=== PATIENT | female | born 1990 | race Caucasian/White ===

== ENCOUNTER 2017-02-24 08:17 | Emergency (ER) | payer SELFPAY ==
[~2017-02-24] VITALS: Ht 162.6 cm; Wt 90.7 kg
[~2017-02-24 08:17] MED LIST: DICY20TA30 PO; HYDR-971 PO; NAPR500T PO; ONDA4TAB10 SL
--- NOTE | 2017-02-24 08:39 | PHYS DOC ---
Past Medical History Past Medical History: Other Additional Past Medical Histor: long QT syndrome Past Surgical History: Other Additional Past Surgical Histo: defibrillator, ectopic Alcohol Use: None Drug Use: None Adult General Chief Complaint Chief Complaint: ABDOMINAL PAIN HPI HPI Patient is a 26 year old female presenting to the emergency department for evaluation of right upper quadrant abdominal pain has been an ongoing issue for months but is worsens yesterday. Has been constant sharp pain causes her nausea but no vomiting fevers chills dysuria hematuria vaginal bleeding or vaginal discharge. She was diagnosed with cholelithiasis back in May of last year and was recommended to have surgery given her ongoing pain however patient says that she has been working with her insurance company to try and get improved for the surgery but has been unsuccessful thus far. Patient is nontoxic-appearing and in no obvious distress with normal vital signs. Review of Systems Review of Systems Constitutional: Denies fever or chills [] Eyes: Denies change in visual acuity, redness, or eye pain [] HENT: Denies nasal congestion or sore throat [] Respiratory: Denies cough or shortness of breath [] Cardiovascular: No additional information not addressed in HPI [] GI: + abdominal pain, nausea. No vomiting, bloody stools or diarrhea [] : Denies dysuria or hematuria [] Musculoskeletal: Denies back pain or joint pain [] Integument: Denies rash or skin lesions [] Neurologic: Denies headache, focal weakness or sensory changes [] Current Medications Current Medications Current Medications Medications (Trade) Dose Ordered Sig/Lyle Start Time Stop Time Status Last Admin Dose Admin Hydromorphone HCl (Dilaudid) 1 mg 1X ONCE 02/24/17 09:45 02/24/17 09:46 DC Ketorolac Tromethamine (Toradol) 30 mg 1X ONCE 02/24/17 09:45 02/24/17 09:46 DC 02/24/17 09:44 30 MG Morphine Sulfate 5 mg 1X ONCE 02/24/17 08:45 02/24/17 08:46 DC 02/24/17 08:50 5 MG Ondansetron HCl (Zofran) 8 mg 1X ONCE 02/24/17 08:45 02/24/17 08:46 DC 02/24/17 08:50 8 MG Promethazine HCl 12.5 mg/Sodium Chloride 50.5 ml @ 151.5 mls/ hr PRN Q6HRS PRN 02/24/17 09:45 02/24/17 09:44 151.5 MLS/HR Sodium Chloride 1,000 ml @ 1,000 mls/hr 1X ONCE 02/24/17 08:45 02/24/17 09:44 DC 02/24/17 08:50 1,000 MLS/HR Allergies Allergies Allergies Coded Allergies Type Severity Reaction Last Updated Verified No Known Drug Allergies 01/06/14 No Physical Exam Physical Exam Constitutional: Well developed, well nourished, no acute distress, non-toxic appearance. [] HENT: Normocephalic, atraumatic, bilateral external ears normal, oropharynx moist, no oral exudates, nose normal. [] Eyes: PERRLA, EOMI, conjunctiva normal, no discharge. [] Neck: Normal range of motion, no tenderness, supple, no stridor. [] Cardiovascular:Heart rate regular rhythm, no murmur [] Lungs & Thorax: Bilateral breath sounds clear to auscultation [] Abdomen: Bowel sounds normal, soft, + RUQ tenderness, no rebound or guarding, no masses, no pulsatile masses. [] Skin: Warm, dry, no erythema, no rash. [] Back: No tenderness, no CVA tenderness. [] Extremities: No tenderness, no cyanosis, no clubbing, ROM intact, no edema. [] Neurologic: Alert and oriented X 3, normal motor function, normal sensory function, no focal deficits noted. [] Current Patient Data Vital Signs Vital Signs Date Time Temp Pulse Resp B/P (MAP) Pulse Ox O2 Delivery O2 Flow Rate FiO2 02/24/17 08:50 16 02/24/17 08:20 98.4 91 132/78 (96) 99 Room Air 98.4 Lab Values Laboratory Tests Test 02/24/17 07:50 02/24/17 08:41 POC Urine HCG, Qualitative Hcg negative (Negative) White Blood Count 7.4 x10^3/uL (4.0-11.0) Red Blood Count 4.76 x10^6/uL (3.50-5.40) Hemoglobin 13.6 g/dL (12.0-15.5) Hematocrit 38.7 % (36.0-47.0) Mean Corpuscular Volume 81 fL (79-100) Mean Corpuscular Hemoglobin 29 pg (25-35) Mean Corpuscular Hemoglobin Concent 35 g/dL (31-37) Red Cell Distribution Width 14.5 % (11.5-14.5) Platelet Count 198 x10^3/uL (140-400) Neutrophils (%) (Auto) 62 % (31-73) Lymphocytes (%) (Auto) 30 % (24-48) Monocytes (%) (Auto) 7 % (0-9) Eosinophils (%) (Auto) 1 % (0-3) Basophils (%) (Auto) 0 % (0-3) Neutrophils # (Auto) 4.6 x10^3uL (1.8-7.7) Lymphocytes # (Auto) 2.2 x10^3/uL (1.0-4.8) Monocytes # (Auto) 0.5 x10^3/uL (0.0-1.1) Eosinophils # (Auto) 0.1 x10^3/uL (0.0-0.7) Basophils # (Auto) 0.0 x10^3/uL (0.0-0.2) Sodium Level 139 mmol/L (136-145) Potassium Level 3.5 mmol/L (3.5-5.1) Chloride Level 104 mmol/L (98-107) Carbon Dioxide Level 25 mmol/L (21-32) Anion Gap 10 (6-14) Blood Urea Nitrogen 15 mg/dL (7-20) Creatinine 0.8 mg/dL (0.6-1.0) Estimated GFR (Cockcroft-Gault) 88.1 BUN/Creatinine Ratio 19 (6-20) Glucose Level 97 mg/dL (70-99) Calcium Level 9.0 mg/dL (8.5-10.1) Magnesium Level 1.7 mg/dL (1.8-2.4) L Total Bilirubin 0.4 mg/dL (0.2-1.0) Aspartate Amino Transferase (AST) 24 U/L (15-37) Alanine Aminotransferase (ALT) 53 U/L (14-59) Alkaline Phosphatase 78 U/L (46-116) Total Protein 7.1 g/dL (6.4-8.2) Albumin 3.7 g/dL (3.4-5.0) Albumin/Globulin Ratio 1.1 (1.0-1.7) Lipase 118 U/L (73-393) Laboratory Tests 02/24/17 08:41 Laboratory Tests 02/24/17 08:41 EKG EKG [] Radiology/Procedures Radiology/Procedures Indication right upper quadrant pain. Grayscale imaging was performed and targeted to the right upper quadrant. No similar imaging is available. The visualized head of the pancreas is normal. The body and tail were largely obscured. The visualized inferior vena cava appeared normal. There is some increased attenuation of the ultrasound beam by the liver compatible with fatty infiltration. A focal mass lesion in the visualized liver is not seen. There is cholelithiasis. Several stones are seen in the dependent portion of the gallbladder. The gallbladder wall is minimally thickened. The patient demonstrated tenderness in the right upper quadrant during the period of the examination (positive Buck's sign). The common bile duct is at the upper limits of normal in size 5 to 6 mm. The right kidney appeared normal. IMPRESSION: Cholelithiasis. Several stones are seen in the dependent portion of the gallbladder. The gallbladder wall is at the upper limits of normal in thickness.. The patient exhibited tenderness in the right upper quadrant during the examination. Cholecystitis is not excluded DICTATED and SIGNED BY: KAREN OVALLE MD DATE: 02/24/17912 Course & Med Decision Making Course & Med Decision Making Likely biliary colic will get labs ultrasound and reassess. Patient had some pain after initial treatment however she is feeling better and is now more complaining of burning pain in her epigastrium. Ultrasound did not rule out cholecystitis however there is no gallbladder wall thickening or pericholecystic fluid. Her labs are unremarkable with no leukocytosis or increased liver enzymes. Patient was given additional medications and her pain was resolved and she was drinking water with no difficulty. I do not see any reason for inpatient treatment of her biliary colic and gastritis at this time so I will discharge her with supportive medication until her to follow with surgeon later this week and come back to the ER sooner with any worsening pain fevers vomiting or other general concerns. Dragon Disclaimer Dragon Disclaimer This electronic medical record was generated, in whole or in part, using a voice recognition dictation system. Departure Departure Impression: Primary Impression: Biliary colic Additional Impression: Abdominal pain Disposition: 01 HOME, SELF-CARE Condition: GOOD Referrals: TINY AZEVEDO MD Patient Instructions: Biliary Colic Additional Instructions: Eat soft non-irritating foods if you feel hungry but focused mostly on liquids including water and Gatorade. We'll with the surgeon as soon as possible and come back to the ER sooner with any worsening pain fevers vomiting or other general concerns. Scripts Omeprazole Magnesium (PRILOSEC OTC) 20 Mg Tablet.dr 1 TAB PO DAILY, #30 TAB 2 Refills Prov: TANIKA OLIVARES DO 02/24/17 Ondansetron (ZOFRAN ODT) 4 Mg Tab.rapdis 4 MG PO BID Y for NAUSEA/VOMITING, #14 TAB Prov: TANIKA OLIVARES DO 02/24/17 Hydrocodone/Apap 5-325 (NORCO 5-325 TABLET) 1 Each Tablet 1 TAB PO PRN Q6HRS Y for PAIN, #20 TAB 0 Refills Prov: TANIKA OLIVARES DO 02/24/17 Problem Qualifiers TANIKA OLIVARES DO Feb 24, 2017 08:39
[2017-02-24] MEDS ORDERED: MORPHINE SULFATE 10 MG/ML VIAL. IV ONE (08:45)
[2017-02-24] MEDS ORDERED: ONDANSETRON PF 4 MG/2 ML VIAL. IV ONE (08:45)
[2017-02-24] MEDS ORDERED: IV NORMAL SALINE 1000ML BAG 1,000 ML IV ONE (08:45)
[2017-02-24 08:51] LABS: BASO % 0 % (0-3); EOS % 1 % (0-3); HEMATOCRIT 38.7 % (36.0-47.0); HEMOGLOBIN 13.6 g/dL (12.0-15.5); LYMPH # 2.2 x10^3/uL (1.0-4.8); LYMPH % 30 % (24-48); MEAN CORPUSCULAR HEMOGLOBIN 29 pg (25-35); MEAN CORPUSCULAR HGB CONC 35 g/dL (31-37); MEAN CORPUSCULAR VOLUME 81 fL (79-100); MONO % 7 % (0-9); NEUT % 62 % (31-73); PLATELET COUNT 198 x10^3/uL (140-400); RED BLOOD COUNT 4.76 x10^6/uL (3.50-5.40); RED CELL DISTRIBUTION WIDTH 14.5 % (11.5-14.5); WHITE BLOOD COUNT 7.4 x10^3/uL (4.0-11.0)
[2017-02-24 09:11] LABS: CREATININE 0.8 mg/dL (0.6-1.0); GFR 88.1; POTASSIUM 3.5 mmol/L (3.5-5.1)
[2017-02-24 09:17] LABS: ALBUMIN 3.7 g/dL (3.4-5.0); ALBUMIN/GLOBULIN RATIO 1.1 (1.0-1.7); MAGNESIUM 1.7 mg/dL (1.8-2.4); TOTAL BILIRUBIN 0.4 mg/dL (0.2-1.0); TOTAL PROTEIN 7.1 g/dL (6.4-8.2)
--- NOTE | 2017-02-24 09:19 | RAD ---
Indication right upper quadrant pain. Grayscale imaging was performed and targeted to the right upper quadrant. No similar imaging is available. The visualized head of the pancreas is normal. The body and tail were largely obscured. The visualized inferior vena cava appeared normal. There is some increased attenuation of the ultrasound beam by the liver compatible with fatty infiltration. A focal mass lesion in the visualized liver is not seen. There is cholelithiasis. Several stones are seen in the dependent portion of the gallbladder. The gallbladder wall is minimally thickened. The patient demonstrated tenderness in the right upper quadrant during the period of the examination (positive Buck's sign). The common bile duct is at the upper limits of normal in size 5 to 6 mm. The right kidney appeared normal. IMPRESSION: Cholelithiasis. Several stones are seen in the dependent portion of the gallbladder. The gallbladder wall is at the upper limits of normal in thickness.. The patient exhibited tenderness in the right upper quadrant during the examination. Cholecystitis is not excluded
[2017-02-24] MEDS ORDERED: KETOROLAC TROMETHAMINE 30 MG/ML INJ. IV ONE (09:45)
[2017-02-24] MEDS ORDERED: PROMETHAZINE 12.5 MG in IV NORMAL SALINE 50ML 50 ML IV PRN (09:45)
[2017-02-24] MEDS ORDERED: HYDROmorphone 2 MG/ML VIAL IV ONE (09:45)
[2017-02-24 11:10] VITALS: BP 132/77
[2017-02-24] MEDS ORDERED: OMEP20TA63 PO (11:56)
[2017-02-24] MEDS ORDERED: HYDR-971 PO (11:56)
[2017-02-24] MEDS ORDERED: ONDA4TAB10 PO (11:56)
== END 2017-02-24 12:13 | disposition home or self-care (01) ==
LOC: ER 08:17
DX: K80.70 Calculus of gallbladder and bile duct without cholecystitis without obstruction (principal); Z95.810 Presence of automatic (implantable) cardiac defibrillator
CPT/HCPCS: 36415; 76705; 80053; 81025; 83690; 83735; 85027; 96361; 96365; 96375; 99285; J1885; J2270; J2405; J2550; J7030

== ENCOUNTER 2017-12-30 18:32 | Emergency (ER) | payer OTHER ==
[2017-12-30 19:16] LABS: URINE HCG POC HCG NEGATIVE (Negative)
[2017-12-30 19:24] LABS: ADD MAN DIFF? NO
[2017-12-30 19:27] LABS: BASO % 1 % (0-3); EOS # 0.1 x10^3/uL (0.0-0.7); EOS % 2 % (0-3); HEMATOCRIT 39.2 % (36.0-47.0); HEMOGLOBIN 13.4 g/dL (12.0-15.5); LYMPH # 2.3 x10^3/uL (1.0-4.8); LYMPH % 28 % (24-48); MEAN CORPUSCULAR HEMOGLOBIN 28 pg (25-35); MEAN CORPUSCULAR HGB CONC 34 g/dL (31-37); MEAN CORPUSCULAR VOLUME 82 fL (79-100); MONO # 0.5 x10^3/uL (0.0-1.1); MONO % 6 % (0-9); NEUT # 5.2 x10^3uL (1.8-7.7); NEUT % 63 % (31-73); PLATELET COUNT 222 x10^3/uL (140-400); RED BLOOD COUNT 4.79 x10^6/uL (3.50-5.40); RED CELL DISTRIBUTION WIDTH 14.6 % (11.5-14.5); WHITE BLOOD COUNT 8.2 x10^3/uL (4.0-11.0)
[2017-12-30 19:29] LABS: BILIRUBIN,URINE NEGATIVE (NEG); CLARITY,URINE CLEAR; COLOR,URINE YELLOW; GLUCOSE,URINE NEGATIVE (NEG); NITRITE,URINE NEGATIVE (NEG); PROTEIN,URINE NEGATIVE (NEG-TRACE); UROBILINOGEN,URINE 0.2 mg/dL (0.2 mg/dL)
[2017-12-30 19:38] LABS: PARTIAL THROMBOPLASTIN TIME 26 SEC (24-38); PROTHROMBIN TIME PATIENT 12.8 SEC (11.7-14.0)
[2017-12-30 19:39] LABS: BACTERIA,URINE FEW /HPF (0-FEW); RBC,URINE 0 /HPF (0-2); SQUAMOUS EPITHELIAL CELL,UR OCC /LPF
[2017-12-30 19:42] LABS: ANION GAP 4 (6-14); BLOOD UREA NITROGEN 17 mg/dL (7-20); CALCIUM 9.2 mg/dL (8.5-10.1); CARBON DIOXIDE 29 mmol/L (21-32); CHLORIDE 103 mmol/L (98-107); CREATININE 0.9 mg/dL (0.6-1.0); GFR 76.3; GLUCOSE 101 mg/dL (70-99); POTASSIUM 3.8 mmol/L (3.5-5.1); SODIUM 136 mmol/L (136-145)
[2017-12-30 19:48] LABS: ALBUMIN 3.6 g/dL (3.4-5.0); ALK PHOS 85 U/L (46-116); ALT (SGPT) 50 U/L (14-59); AST (SGOT) 20 U/L (15-37); DIRECT BILIRUBIN < 0.1 mg/dL (0.0-0.2); LIPASE 151 U/L (73-393); TOTAL BILIRUBIN 0.2 mg/dL (0.2-1.0); TOTAL PROTEIN 7.4 g/dL (6.4-8.2)
[2017-12-30 19:55] LABS: CKMB INDEX 1.3 % (0-4); CREATINE KINASE 80 U/L (26-192)
[2017-12-30] MEDS: KETOROLAC 30 MG/ML INJ. IV (20:44)
== END 2017-12-30 21:12 | disposition home or self-care (01) ==
LOC: ER 18:32
DX: K80.00 Calculus of gallbladder with acute cholecystitis without obstruction (principal); I45.81 Long QT syndrome; Z95.810 Presence of automatic (implantable) cardiac defibrillator
CPT/HCPCS: 36415; 76705; 80048; 80076; 81001; 81025; 82553; 83690; 85025; 85610; 85730; 87086; 96374; 99285-25; J1885

== ENCOUNTER 2018-03-30 16:56 | Emergency (ER) | payer OTHER ==
[2018-03-30 17:17] LABS: URINE HCG POC HCG POSITIVE (Negative)
[2018-03-30 17:50] LABS: BILIRUBIN,URINE NEGATIVE (NEG); CLARITY,URINE CLOUDY; COLOR,URINE YELLOW; GLUCOSE,URINE NEGATIVE (NEG); NITRITE,URINE POSITIVE (NEG); PROTEIN,URINE 30 mg/dL (NEG-TRACE)
[2018-03-30 18:06] LABS: BACTERIA,URINE MANY /HPF (0-FEW); RBC,URINE OCC /HPF (0-2); WBC,URINE >40 /HPF (0-4)
[2018-03-30 18:07] LABS: SQUAMOUS EPITHELIAL CELL,UR MANY /LPF
[2018-03-30 18:48] LABS: ADD MAN DIFF? NO
[2018-03-30 18:57] LABS: BASO % 0 % (0-3); EOS # 0.2 x10^3/uL (0.0-0.7); EOS % 2 % (0-3); HEMATOCRIT 37.5 % (36.0-47.0); HEMOGLOBIN 12.8 g/dL (12.0-15.5); LYMPH # 1.6 x10^3/uL (1.0-4.8); LYMPH % 23 % (24-48); MEAN CORPUSCULAR HEMOGLOBIN 28 pg (25-35); MEAN CORPUSCULAR HGB CONC 34 g/dL (31-37); MEAN CORPUSCULAR VOLUME 82 fL (79-100); MONO # 0.5 x10^3/uL (0.0-1.1); MONO % 7 % (0-9); NEUT # 4.8 x10^3uL (1.8-7.7); NEUT % 68 % (31-73); PLATELET COUNT 232 x10^3/uL (140-400); RED BLOOD COUNT 4.56 x10^6/uL (3.50-5.40); RED CELL DISTRIBUTION WIDTH 14.4 % (11.5-14.5)
[2018-03-30 19:20] LABS: ANION GAP 10 (6-14); BLOOD UREA NITROGEN 11 mg/dL (7-20); BUN/CREATININE RATIO 12 (6-20); CALCIUM 8.6 mg/dL (8.5-10.1); CARBON DIOXIDE 25 mmol/L (21-32); CHLORIDE 107 mmol/L (98-107); CREATININE 0.9 mg/dL (0.6-1.0); GFR 76.3; GLUCOSE 91 mg/dL (70-99); POTASSIUM 3.7 mmol/L (3.5-5.1); SODIUM 142 mmol/L (136-145)
[2018-03-30 19:26] LABS: ALBUMIN 3.4 g/dL (3.4-5.0); ALBUMIN/GLOBULIN RATIO 0.9 (1.0-1.7); ALK PHOS 74 U/L (46-116); ALT (SGPT) 85 U/L (14-59); AST (SGOT) 29 U/L (15-37); TOTAL BILIRUBIN 0.3 mg/dL (0.2-1.0)
== END 2018-03-30 19:56 | disposition home or self-care (01) ==
LOC: ER 16:56
DX: O23.41 Unspecified infection of urinary tract in pregnancy, first trimester (principal); Z3A.00 Weeks of gestation of pregnancy not specified
CPT/HCPCS: 36415; 76801; 80053; 81001; 81025; 85025; 87086; 99285-25

== ENCOUNTER 2018-11-06 20:25 | Observation (INO) | payer OTHER ==
[2018-03-30 17:05] VITALS: BP 131/62
[~2018-11-06 20:25] MED LIST changes: +CEPH-264 PO; +HYDR-3164 PO; -HYDR-971 PO; +NAPR-683 PO; -NAPR500T PO; +NITR100C62 PO; +OMEP20TA63 PO; +ONDA4TAB10 PO; +SULF1TAB24 PO
[2018-11-06 21:32] LABS: BILIRUBIN,URINE NEGATIVE (NEG); CLARITY,URINE CLEAR; COLOR,URINE YELLOW; NITRITE,URINE NEGATIVE (NEG); PROTEIN,URINE NEGATIVE (NEG-TRACE)
[2018-11-06 21:37] LABS: BARBITURATES NEG (NEG); BENZODIAZEPINES NEG (NEG); CANNABINOIDS NEG (NEG); COCAINE NEG (NEG); METHADONE NEG (NEG); OPIATES NEG (NEG); PHENCYCLIDINE NEG (NEG)
[2018-11-06 21:38] LABS: BACTERIA,URINE MANY /HPF (0-FEW); SQUAMOUS EPITHELIAL CELL,UR MANY /LPF
[2018-11-06 21:39] LABS: RBC,URINE 0 /HPF (0-2); WBC,URINE 20-40 /HPF (0-4)
[2018-11-06 21:42] LABS: AMPHETAMINE/METHAMPHETAMINE NEG (NEG)
== END 2018-11-06 22:00 | disposition home or self-care (01) ==
LOC: 3 SO LND 20:25
PROVIDERS: ADMIT Specialist; ATTEND Specialist
DX: O26.893 Other specified pregnancy related conditions, third trimester (principal); R10.9 Unspecified abdominal pain; M54.9 Dorsalgia, unspecified; Z3A.35 35 weeks gestation of pregnancy
CPT/HCPCS: 80307; 81001; 87086; G0378; G0379; 87186

== ENCOUNTER 2019-09-30 14:43 | Emergency (ER) | payer MEDICAID, OTHER ==
[2019-09-30 16:05] VITALS: BP 124/56
[2019-09-30] MEDS ORDERED: ALBU2.5V8 IH (16:31)
[2019-09-30] MEDS ORDERED: METH4TAB2 PO (16:31)
--- NOTE | 2019-09-30 16:32 | PHYS DOC ---
Past Medical History Past Medical History: Gallstones, Other Additional Past Medical Histor: long QT syndrome, "gallstone" Past Surgical History: Other Additional Past Surgical Histo: defibrillator, ectopic Alcohol Use: None Drug Use: None Adult General Chief Complaint Chief Complaint: COUGH [facility] Patient is a 29 year old female who presents with cough this been ongoing for week and a half. The patient denies any other symptoms including fever, nausea, vomiting, loss of appetite. Complete ROS were reviewed and found to be within normal limits, except as documented in the [facility] Allergies Allergies Allergies Coded Allergies Type Severity Reaction Last Updated Verified No Known Drug Allergies 01/06/14 No Physical Exam Physical Exam Constitutional: Well developed, well nourished, no acute distress, non-toxic appearance. [] HENT: Normocephalic, atraumatic, bilateral external ears normal, oropharynx moist, no oral exudates, nose normal. [] Eyes: PERRLA, EOMI, conjunctiva normal, no discharge. [] Neck: Normal range of motion, no tenderness, supple, no stridor. [] Cardiovascular:Heart rate regular rhythm, no murmur [] Lungs & Thorax: Bilateral breath sounds clear to auscultation [] Skin: Warm, dry, no erythema, no rash. [] Neurologic: Alert and oriented X 3, normal motor function, normal sensory function, no focal deficits noted. [] Psychologic: Affect normal, judgement normal, mood normal. [] Current Patient Data Vital Signs Vital Signs Date Time Temp Pulse Resp B/P (MAP) Pulse Ox O2 Delivery O2 Flow Rate FiO2 09/30/19 16:05 98.1 94 16 124/56 (78) 100 Room Air 98.1 EKG EKG [] Radiology/Procedures Radiology/Procedures [] Course & Med Decision Making Course & Med Decision Making Pertinent Labs and Imaging studies reviewed. (See chart for details) Patient appears to have bronchitis. Will get Medrol dose pack and a inhaler. Dragon Disclaimer Dragon Disclaimer This electronic medical record was generated, in whole or in part, using a voice recognition dictation system. Departure Departure Impression: Primary Impression: Bronchitis Disposition: 01 HOME, SELF-CARE Condition: STABLE Referrals: BRIANNA FAGAN MD (PCP) Patient Instructions: Acute Bronchitis Additional Instructions: Thank you for visiting [facility]. We appreciate you trusting us with your care. If any additional problems come up don't hesitate to return to visit us. Please follow up with your primary care provider so they can plan additional care if needed and know about the problem that you had. If symptoms worsen come back to the Emergency Department. Any concerning symptoms that start such as chest pain, shortness of air, weakness or numbness on one side of the body, running high fevers or any other concerning symptoms return to the ER. Please fill your medications at any pharmacy and follow the prescription instructions. Scripts Methylprednisolone (MEDROL) 4 Mg Tab.ds.pk 1 PKG PO UD, #1 PKG Prov: ROB HUTCHINS APRN 09/30/19 Albuterol Sulfate (PROAIR HFA INHALER) 8.5 Gm Hfa.aer.ad 2 PUFF IH PRN Q4-6HRS PRN for wheezing for 21 Days, #1 INHALER 0 Refills Prov: ROB HUTCHINS APRN 09/30/19 ROB HUTCHINS APRN Sep 30, 2019 16:32
== END 2019-09-30 16:45 | disposition home or self-care (01) ==
LOC: ER 14:43
DX: O99.513 Diseases of the respiratory system complicating pregnancy, third trimester (principal); J40 Bronchitis, not specified as acute or chronic; Z3A.29 29 weeks gestation of pregnancy
CPT/HCPCS: 99283

== ENCOUNTER 2019-12-02 18:32 | Observation (INO) | payer MEDICAID ==
[~2019-12-02 18:32] MED LIST changes: +ALBU2.5V8 IH; +METH4TAB2 PO
[2019-12-02] MEDS ORDERED: IV RINGERS,LACTATED 1000ML 1,000 ML IV SCH (19:06)
[2019-12-02 19:17] LABS: AMNIO PT NEGATIVE
[2019-12-02 19:19] LABS: BILIRUBIN,URINE NEGATIVE (NEG); CLARITY,URINE CLEAR; COLOR,URINE YELLOW; NITRITE,URINE NEGATIVE (NEG); PH,URINE 6.5 (<5.0-8.0); PROTEIN,URINE NEGATIVE (NEG-TRACE)
[2019-12-02 19:29] LABS: RBC,URINE 0 /HPF (0-2); SQUAMOUS EPITHELIAL CELL,UR MOD /LPF
[2019-12-02 19:30] LABS: BACTERIA,URINE FEW /HPF (0-FEW)
--- NOTE | 2019-12-02 20:38 | RAD ---
INDICATION: Leaking fluid in COMPARISON: None. FINDINGS: Focused ultrasound images are obtained through the uterus. The cervix is obscured. Amniotic fluid index is 14.5. heartbeat is 152. Biparietal diameter 92 mm, 37 weeks 3 day. Head circumference 329 mm, 37 week 3 day. Abdominal circumference 337 mm, 37 week 4 day. Femur length 73 mm, 37 week 4 day estimated weight 3242 g, 54th percentile. Cephalic presentation at time of exam. Placenta is anterior. Estimated gestational age of 37 weeks and 4 days. IMPRESSION: * Intrauterine is identified with a normal amniotic fluid index of 14.5 with positive heartbeat and estimated gestational age is 37 weeks and 4 days. Electronically signed by: Darrion Dominguez MD (12/02/2019 8:35 PM) [id number]
[2019-12-18] MEDS ORDERED: IBUP-1027 PO (08:13)
== END 2019-12-02 20:40 | disposition home or self-care (01) ==
LOC: 3 SO LND 18:32
PROVIDERS: ADMIT Obstetrics & Gynecology; ATTEND Obstetrics & Gynecology
DX: O42.92 Full-term premature rupture of membranes, unspecified as to length of time between rupture and onset of labor (principal); Z3A.37 37 weeks gestation of pregnancy
CPT/HCPCS: 36415; 76815; 81001; 84112; 87086; G0378; G0379

== ENCOUNTER 2020-06-16 16:32 | Emergency (ER) | payer MEDICAID ==
[~2020-06-16] VITALS: Ht 167.6 cm; Wt 98.1 kg
[~2020-06-16 16:32] MED LIST changes: +IBUP-1027 PO
--- NOTE | 2020-06-16 16:58 | PHYS DOC ---
Past Medical History Past Medical History: Gallstones, Other Additional Past Medical Histor: long QT syndrome, "gallstone" Past Surgical History: Other Additional Past Surgical Histo: defibrillator, ectopic Smoking Status: Never Smoker Alcohol Use: None Drug Use: None General Adult EDM: Chief Complaint: VAGINAL PROBLEM HPI: HPI: 29-year-old (1 first tm SAB and 1 ectopic w/L salpingectomy 2017), female past medical history significant for prolonged QT syndrome with defibrillator and history of ectopic , presents to the ED with complaints of pruritic, tingling and painful vaginal bumps, present for the past 4 days after patient had a menses. Patient states she has had the same rash occur years before and was told here "it was nothing. " Patient denies any prior sexually transmitted infection. Does report unprotected intercourse with a male partner. Unsure if she has any abnormal vaginal discharged. Denies vaginal bleeding or malodorous discharge. Reports 6 month old, s/p , is not . Review of Systems: Review of Systems: Constitutional: Denies fever or chills. [] Eyes: Denies change in visual acuity. [] HENT: Denies nasal congestion or sore throat. [] Respiratory: Denies cough or shortness of breath. [] Cardiovascular: Denies chest pain or edema. [] GI: Denies abdominal pain, nausea, vomiting, bloody stools or diarrhea. [] : Denies dysuria. [] Musculoskeletal: Denies back pain or joint pain. [] Integument: Denies rash. [] Neurologic: Denies headache, focal weakness or sensory changes. [] Endocrine: Denies polyuria or polydipsia. [] Lymphatic: Denies swollen glands. [] Psychiatric: Denies depression or anxiety. [] Heart Score: Risk Factors: Risk Factors: DM, Current or recent (<one month) smoker, HTN, HLP, family history of CAD, obesity. Risk Scores: Score 0 - 3: 2.5% MACE over next 6 weeks - Discharge Home Score 4 - 6: 20.3% MACE over next 6 weeks - Admit for Clinical Observation Score 7 - 10: 72.7% MACE over next 6 weeks - Early Invasive Strategies Allergies: Allergies: Allergies Coded Allergies Type Severity Reaction Last Updated Verified No Known Drug Allergies 01/06/14 No Physical Exam: PE: Constitutional: Well developed, well nourished, no acute distress, non-toxic appearance. [] HENT: Normocephalic, atraumatic, bilateral external ears normal, oropharynx moist, no oral exudates, nose normal. [] Eyes: EOMI, conjunctiva normal, no discharge. [] Neck: Normal range of motion, supple, Cardiovascular: S1, S2 present Lungs & Thorax: Speaking in full sentences, bilateral equal chest rise Abdomen: soft, no tenderness, Skin: Warm, dry, no erythema, no rash. [] Back: No tenderness, Extremities: no cyanosis, ROM intact, no edema. [] Neurologic: Alert and oriented X 3, normal motor function, normal sensory function, no focal deficits noted. [] Psychologic: Affect normal, judgement normal, mood normal. [] Pelvic: Chaperoned by RN, 4-5 painful fluid filled vesicles (2-3mm) over red base -not in clumps but individual vesicles over both labia (none have ruptured/no ulcers), worse one is over proximal right upper labia just lateral to clitoral french Current Patient Data: Labs: Laboratory Tests Test 06/16/20 16:51 POC Urine HCG, Qualitative Hcg negative (Negative) EKG: EKG: [] Radiology/Procedures: Radiology/Procedures: [] Course & Med Decision Making: Course & Med Decision Making Pertinent Labs and Imaging studies reviewed. (See chart for details) Concern for mild external vaginal vesicles (no more than 5 lesions), very similar to herpes simplex 2 although vesicles are not in clusters together. Ddx may include autoimmune or genetic bullous disorders vs inflammatory or drug induced reactions. Pt reports a similar rash in the past. Will treat with Rocephin IM in the ED and will be discharged with doxycycline for chlamydia coverage, azithromycin contraindicated due to history of prolonged QT. Herpes antibody test pending. UA contaminated. Will have patient follow-up with primary care physician to repeat UA. Will treat with 5 days of acyclovir. Advised to avoid all sexual activity until rash resolves. Strict ED return precautions given for fever, abdominal or back pain. Encouraged urgent outpatient follow-up with PMD and OBgyn. Life-threatening processes were considered but are low suspicion at this time, given history and physical exam. Pt was educated on all prescription medications and adverse effects. All patient's questions were answered and pt was stable at time of discharge. Life-threatening differential includes aortic dissection, aortic aneurysm, acute coronary syndrome, surgical abdomen (appendicitis, cholecystitis, ischemic bowel, strangulated hernia, etc), bowel obstruction or volvulus, bladder outlet obstruction, gastrointestinal bleeding, inflammatory bowel disease, peptic ulcer disease, sepsis, diverticular disease, ureterolithiasis, nephrolithiasis, ovarian torsion, ectopic , vaginal hemorrhage, or genitourinary infection. I spoken with the patient and her caregivers. I explained the patient's condition, diagnoses and treatment plan based on the information available to me at this time. I have answered the patient and her caregiver's questions and addressed any concerns. The patient and her caregivers have a good understanding of patient's diagnosis, condition and treatment plan as can be expected at this point. Vital signs have been stable. Patient's condition is stable and appropriate for discharge from the emergency department. Patient will pursue further outpatient evaluation with primary care physician or other designated or consulting physician as outlined in the discharge instructions. The patient and/or caregivers are agreeable to this plan of care and follow-up instructions have been explained in detail. The patient and/or caregivers have received these instructions in written form and have expressed an understanding of the discharge instructions. The patient and/or caregivers are aware that any significant change of condition or worsening of symptoms should prompt immediate return to this or the closest emergency department or call to 3. Clara Disclaimer: Clara Disclaimer: This electronic medical record was generated, in whole or in part, using a voice recognition dictation system. Departure Departure Impression: Primary Impression: Herpes genitalia Additional Impression: Rash of genital area Disposition: HOME, SELF-CARE Condition: STABLE Referrals: NO PCP (PCP) Family Medicine Address: [address], [facility] [address] [place] [address] Patient Instructions: Genital Herpes Additional Instructions: [facility] Address: [address], [facility] [address] [place] [address] EMERGENCY DEPARTMENT GENERAL DISCHARGE INSTRUCTIONS Thank you for coming to [facility] Emergency Department (ED) today and trusting us with you care. We trust that you had a positive experience in our Emergency Department. If you wish to speak to the department management, you may call the Director at [phone]. YOUR FOLLOW UP INSTRUCTIONS ARE FOLLOWS: 1. Do you have a private Doctor? If you do not have a private doctor, please ask for a resource list of physicians or clinics that may be able to assist you with follow up care. 2. The Emergency Physicain has interpreted your x-rays. The X-Ray specialist will also review them. If there is a change in the findings, you will be notified in 48 hours when at all possible. 3. A lab test or culture has been done, your results will be reviewed and you will be notified if you need a change in treatment. ADDITIONAL INSTRUCTIONS AND INFORMATION: 1. Your care today has been supervised by a physician who is specially trained in emergency care. Many problems require more than one evaluation for a complete diagnosis and treatment. We recommend that you schedule your follow up appointment as recommended to ensure complete treatment of you illness or injury. If you are unable to obtain follow up care and continue to have a problem, or if your condition worsens, we recommend that you return to the ED. 2. We are not able to safely determine your condition over the phone nor are we able to give sound medical advice over the phone. For these safety reasons, if you call for medical advice we will ask you to come to the ED for further evaluation. 3. If you have any questions regarding these discharge instructions please call the ED at [phone]. SAFETY INFORMATION: In the interest of safety, wellness, and injury prevention; we encourage you to wear your sealbelt, if you smoke; quite smoking, and we encourage family to use a pr otective helmet for bicycling and other sporting events that present an increased risk for head injury. IF YOUR SYMPTOMS WORSEN OR NEW SYMPTOMS DEVELOP, OR YOU HAVE CONCERNS ABOUT YOUR CONDITION; OR IF YOUR CONDITION WORSENS WHILE YOU ARE WAITING FOR YOUR FOLLOW UP APPOINTMENT; EITHER CONTACT YOUR PRIMARY CARE DOCTOR, THE PHYSICIAN WHOSE NAME AND NUMBER YOU WERE GIVEN, OR RETURN TO THE ED IMMEDIATELY. Scripts Acyclovir (ACYCLOVIR) 400 Mg Tablet 1 TAB PO TID for 10 Days, #30 TAB Prov: YOLANDA MOODY DO 06/16/20 Neomycn/Baci Zn/Pmyx Bs/Pramox (Triple Antibioti-Pain Rlf Oint) 28 Gm Oint...g. 28 GM TP QID PRN for PAIN, #1 MISC Prov: YOLANDA MOODY DO 06/16/20 Doxycycline Hyclate (DOXYCYCLINE HYCLATE) 100 Mg Capsule 1 CAP PO BID for 7 Days, #14 CAP Prov: YOLANDA MOODY DO 06/16/20 YOLANDA MOODY DO Jun 16, 2020 16:58
[2020-06-16 17:01] LABS: BILIRUBIN,URINE NEGATIVE (NEG); CLARITY,URINE CLEAR; COLOR,URINE YELLOW; NITRITE,URINE NEGATIVE (NEG); PROTEIN,URINE NEGATIVE (NEG-TRACE)
[2020-06-16 17:08] LABS: BACTERIA,URINE MODERATE /HPF (0-FEW); RBC,URINE 0 /HPF (0-2)
[2020-06-16] MEDS ORDERED: cefTRIAXone IM 250 MG VIAL IM ONE (17:30)
[2020-06-16] MEDS ORDERED: AZITHROMYCIN 250 MG TABLET. PO ONE (17:30)
[2020-06-16 18:00] VITALS: BP 108/58
[2020-06-16] MEDS ORDERED: NEOM28OI21 TP (18:10)
[2020-06-16] MEDS ORDERED: DOXY100C2 PO (18:10)
[2020-06-16] MEDS ORDERED: ACYC400T PO (18:13)
[2020-06-17 20:08] LABS: GC PROBE Negative (Negative)
[2020-06-19 18:08] LABS: HERPES SIMPLEX TYPE 1 Negative (Negative); HERPES SIMPLEX TYPE 2 Negative (Negative)
== END 2020-06-16 18:17 | disposition home or self-care (01) ==
LOC: ER 16:32
DX: A60.09 Herpesviral infection of other urogenital tract (principal); R21 Rash and other nonspecific skin eruption; Z95.810 Presence of automatic (implantable) cardiac defibrillator
CPT/HCPCS: 36415; 81001; 81025; 87077; 87086; 87186; 87491; 87529; 87591; 96372; 99284; J0696; Q0111